=== PATIENT | male | born 1990 | race Caucasian/White ===

== ENCOUNTER → 2020-11-28 | Outpatient (CLI) | payer BC ==
[~2020-11-28] MED LIST: ASPIRIN CHEWABL81 MG PO; BENTYL 20MG TAB20 MG PO; FLAGYL500 MG PO; LEVAQUIN500 MG PO; ZOFRAN4 MG PO
[2020-11-28 17:38] LABS: HEMOGLOBIN 14.3 gm/dl (14.0-17.5); RED BLOOD COUNT 4.86 M/UL (4.20-5.50); WHITE BLOOD COUNT 13.6 K/UL (4.5-11.0)
[2020-11-28 17:55] LABS: BUN/CREATININE RATIO 10 (0-10)
== END ==
LOC: LAB 16:39
PROVIDERS: Nurse Practitioner
DX: K57.11 Diverticulosis of small intestine without perforation or abscess with bleeding (principal)
CPT/HCPCS: 80053; 85025; 85652; 86140

== ENCOUNTER → 2020-12-06 | Outpatient (CLI) | payer BC ==
[2020-12-06 13:39] LABS: HEMOGLOBIN 14.4 gm/dl (14.0-17.5); RED BLOOD COUNT 4.89 M/UL (4.20-5.50); WHITE BLOOD COUNT 10.5 K/UL (4.5-11.0)
[2020-12-06 14:09] LABS: BUN/CREATININE RATIO 11 (0-10)
[2020-12-07 09:13] LABS: THYROXINE (T4) 6.2 ug/dL (4.5-12.0); VITAMIN D, 25-HYDROXY 21.4 ng/mL (30.0-100.0)
[2020-12-11 17:08] LABS: ACCA 16 units (0-90); ALCA 23 units (0-60); AMCA 71 units (0-100); ATYPICAL PANCA Negative (Negative); GASCA 14 units (0-50)
== END ==
LOC: LAB 12:49
PROVIDERS: Nurse Practitioner
DX: R10.84 Generalized abdominal pain (principal); R53.83 Other fatigue; E78.5 Hyperlipidemia, unspecified; E03.9 Hypothyroidism, unspecified; R19.4 Change in bowel habit; Z87.19 Personal history of other diseases of the digestive system; Z83.79 Family history of other diseases of the digestive system
CPT/HCPCS: 36415; 80053; 80061; 81001; 83516; 84436; 84443; 84480; 85025; 86255; 86641